=== PATIENT | female | born 1970 | race Caucasian/White ===

== ENCOUNTER 2018-05-23 05:48 | Day surgery (SDC) | payer MEDICAID ==
[2018-05-23] MEDS: Albuterol/Ipratropium 3.0-0.5 MG/3 ML Neb Soln NEB ONE ×2 (06:20→09:58)
[2018-05-23] MEDS: Acetaminophen 500 MG Tab PO ONE ×2 (06:20→09:57)
[2018-05-23] MEDS ORDERED: Bupivacaine 0.5%/EPINEPHrine 1:200,000 50 ML MDV ONE (07:00)
[2018-05-23] MEDS ORDERED: fentaNYL 250 MCG/5 ML SDV ONE (07:29)
[2018-05-23] MEDS ORDERED: cefOXitin 2 GM in Sodium Chloride 0.9% 50 ML IV ONE (07:30)
[2018-05-23] MEDS ORDERED: Ropivacaine 34 ML, Dexamethasone 8 MG, EPINEPHrine 0.4 MG, Sodium Chloride 0.9% 43.6 ML NERVRT SCH ×4 (07:30)
[2018-05-23] MEDS ORDERED: Ketamine 500 MG/5 ML MDV IV SCH (07:30)
[2018-05-23] MEDS ORDERED: Succinylcholine 200 MG/10 ML MDV ONE (08:07)
[2018-05-23] MEDS ORDERED: Rocuronium 50 MG/5 ML Vial ONE (08:07)
[2018-05-23] MEDS ORDERED: Dexamethasone 4 MG/ML SDV ONE (08:07)
[2018-05-23] MEDS ORDERED: Ondansetron 4 MG/2 ML SDV ONE (08:07)
[2018-05-23] MEDS ORDERED: Neostigmine Methylsulfate 1 MG/ML 5 ML Syringe ONE (08:07)
[2018-05-23] MEDS ORDERED: Propofol 200 MG/20 ML SDV ONE (08:07)
[2018-05-23] MEDS ORDERED: Glycopyrrolate 0.2 MG/ML 5 ML MDV ONE (08:07)
[2018-05-23] MEDS ORDERED: fentaNYL 100 MCG/2 ML SDV ONE (08:09)
[2018-05-23] MEDS ORDERED: HYDROmorphone/Normal Saline 15 MG/30 ML PCA IV PRN (08:10)
[2018-05-23] MEDS ORDERED: hydrOXYzine HCl 100 MG/2 ML SDV IM ONE (08:10)
[2018-05-23] MEDS ORDERED: Naloxone 0.4 MG/ML SDV IV PRN (08:14)
[2018-05-23] MEDS: Dextrose 5%-Lactated Ringers 1,000 ML IV SCH ×2 (08:39→17:37)
[2018-05-23] MEDS ORDERED: Albuterol 8 GM Inhaler INH PRN (09:55)
[2018-05-23] MEDS ORDERED: Albuterol/Ipratropium 3.0-0.5 MG/3 ML Neb Soln INH PRN (09:56)
[2018-05-23] MEDS ORDERED: Ondansetron 4 MG/2 ML SDV IVPUSH PRN (10:00)
[2018-05-23] MEDS ORDERED: Pantoprazole 40 MG Vial IVPUSH SCH (11:00)
[2018-05-23] MEDS ORDERED: Acetaminophen 500 MG Tab PO PRN (11:27)
[2018-05-23] MEDS: buPROPion 150 MG Tab.ER PO SCH (11:41)
[2018-05-23] MEDS: Sertraline 50 MG Tab PO SCH (11:41)
[2018-05-23] MEDS: cycloSPORINE Ophth Drops U/D Box of 30 EYEBOTH SCH ×2 (11:41→21:27)
[2018-05-23] MEDS ORDERED: Ondansetron 4 MG Tab.DIS PO PRN (13:13)
[2018-05-23] MEDS: cefOXitin 2 GM in Sodium Chloride 0.9% 50 ML IV SCH ×2 (14:33→19:39)
[2018-05-23] MEDS: Acetaminophen/HYDROcodone 325-5 MG Tab PO PRN ×2 (17:37→21:32)
[2018-05-23] MEDS ORDERED: hydrOXYzine HCl 25 MG Tab PO ONE (23:54)
[2018-05-24] MEDS: Acetaminophen/HYDROcodone 325-5 MG Tab PO PRN ×3 (01:25→10:19)
[2018-05-24] MEDS ORDERED: Aspirin 325 MG Tab.EC PO SCH (09:00)
[2018-05-24] MEDS: buPROPion 150 MG Tab.ER PO SCH (10:01)
[2018-05-24] MEDS: cycloSPORINE Ophth Drops U/D Box of 30 EYEBOTH SCH (10:01)
[2018-05-24] MEDS: Sertraline 50 MG Tab PO SCH (10:01)
--- NOTE | 2018-05-24 11:22 | DISCH ---
ADMISSION DIAGNOSES: Cholecystitis, status post Katie-en-Y gastric bypass surgery, unspecified surgical malabsorption, B12 deficiency, history of acute vein thrombosis and pulmonary embolism, alcoholism, and pancreatic insufficiency. DISCHARGE DIAGNOSES: Laparoscopic cholecystectomy for chronic cholecystitis and cholelithiasis. Date of surgery 05/23/2018. HISTORY: Michlele Styles is a pleasant 47-year-old female with abdominal pain. After preoperative evaluation and discussion of possible risks and possible complications, she wished to proceed with surgical procedure. HOSPITAL COURSE: Michelle had her surgery on 05/23/2018. She had no operative complications. On postoperative day #1, her vital signs were stable. Activity good. Pain was well controlled. Oral intake adequate, and she was able to be discharged to home. PHYSICAL EXAMINATION: GENERAL: Michelle is a pleasant 47-year-old female. VITAL SIGNS: Height 5 feet 5.5 inches. Weight is 151 pounds. TPR 97.7, 73, and 16. Blood pressure 98/58. HEENT: Negative. NECK: Supple. HEART: Regular rate and rhythm without murmur, gallop, or rub. LUNGS: Clear to auscultation in all 4 rowe. No wheezing, rales, or rhonchi. ABDOMEN: Dressings dry and intact. Abdominal binder is on. EXTREMITIES: Without peripheral edema. DISPOSITION: Discharged to home. CONDITION: Stable and improving. FOLLOWUP APPOINTMENT: Miriam Lima PA-C on 05/31/2018 at 11:00 a.m. NEW PRESCRIPTIONS: 1. Tylenol Extra Strength 1000 mg every 6 hours p.r.n. pain. 2. [place] 5/325 mg 1 to 2 every 4 hours p.r.n. pain #30. 3. Aspirin 325 mg oral daily for 2 weeks. She is to resume her home medications of: 1. Ventolin inhaler 1 puff every 4 hours p.r.n. shortness of breath. 2. Creon 12,000 units for a total of 24,000 units oral 3 times a day. 3. Vitamin D3, 2000 international units daily. 4. Lomotil 1 tablet oral daily p.r.n. constipation. 5. Levsin 0.125 mg oral every 4 hours. 6. Probiotic 5 caps oral daily. 7. Zofran 4 mg ODT every 6 hours p.r.n. nausea. 8. Protonix 40 mg oral daily. 9. Zoloft 100 mg oral daily. 10.B complex 1 daily. 11.Wellbutrin XL 150 mg oral daily. 12.Restasis 1 drop in both eyes b.i.d. DIET: Diet after discharge, usual diet as tolerated. Drink 8 to 10 glasses of water a day. ACTIVITY: No lifting greater than 10 pounds for 2 weeks. Other activity, walk at least 6 times daily inside your home. Driving, do not drive while on narcotic pain medication. Shower/bathing, may shower. DISCHARGE INSTRUCTIONS: Notify provider if any fever, increased pain, nausea, or vomiting. Wound incision care; keep site clean and dry. Wear abdominal binder for 2 weeks and then as tolerated and use incentive spirometer 10 times every hour while awake. KAMLESH hose to be worn during the day for at least 2 weeks.
--- NOTE | 2018-05-30 07:43 | OR ---
DATE OF PROCEDURE: 05/23/2018 PREOPERATIVE DIAGNOSIS: Chronic cholecystitis and cholelithiasis. POSTOPERATIVE DIAGNOSIS: Chronic cholecystitis and cholelithiasis. OPERATIVE PROCEDURE: Laparoscopic cholecystectomy (37469). ANESTHESIA: General. ASSISTANTS: Miriam Lima PA-C INDICATION FOR PROCEDURE: This is a 47-year-old presenting with some ongoing episodes of pain consistent with biliary colic. CT scan was obtained which showed stones, as well as a somewhat thickened gallbladder wall, and the plan is to proceed with laparoscopic cholecystectomy. The potential risks of the procedure including bleeding, infection, injury to underlying viscera, such as common bile duct, and the possibility of stones migrating into the common bile duct requiring additional procedures for correction were all reviewed, and the patient wishes to proceed. DETAILS OF PROCEDURE: The patient was taken to the operating room and placed in a supine position. After general endotracheal anesthesia was induced, the abdomen was prepped and draped. A transverse epigastric incision was made, and the peritoneal cavity entered under direct vision with an Optiview trocar and inflated to 15 mmHg pressure with CO2. Laparoscope was then inserted. No underlying trocar insertion site injuries were seen. Following this, a 12 mm subumbilical trocar was placed along with a 5 mm right abdominal trocar. Bilateral subcostal transversus abdominis plane blocks were then placed with direct visualization of the needle in the correct location bilaterally. The gallbladder was noted to be edematous and somewhat thick-walled. This was retracted superiorly and laterally. The dissection with Harmonic scalpel began on the gallbladder neck, continued around the gallbladder neck/cystic duct junction. Once that area was well- delineated, as was the adjacent cystic artery, both structures were clipped 3 times proximally, once distally, and divided. The gallbladder was then dissected off the gallbladder bed with Harmonic scalpel and delivered through the epigastric trocar site. It was noted to contain numerous small stones. The area of dissection was inspected. No bleeding or bile leaks were seen. A drain was felt not to be necessary. Trocar sites were then sequentially closed with 0 Vicryl stitch at the fascial level and 4-0 Vicryl skin stitch. Dressing was applied. The patient was taken to the recovery room in satisfactory condition. Fredy Villa MD /[id number] [facility], [place], [place]
== END 2018-05-24 10:40 | disposition home or self-care (01) ==
LOC: JP.SDS 05:48 → JP.MS 09:00 → JP.SDS 05-24 10:40
PROVIDERS: ATTEND Surgery
DX: K80.10 Calculus of gallbladder with chronic cholecystitis without obstruction (principal); F17.210 Nicotine dependence, cigarettes, uncomplicated; F33.9 Major depressive disorder, recurrent, unspecified; J30.9 Allergic rhinitis, unspecified; Z98.84 Bariatric surgery status; Z79.899 Other long term (current) drug therapy
CPT/HCPCS: 36415; 47562; 82247; 84075; 85025; 88304; 94640; A9270; J0171; J0330; J0694; J1100; J2405; J2704; J2710; J2795; J3010; J3410; J3490; J7042; J7050; J7620-GY